=== PATIENT | female | born 1950 | race Two or more races ===

== ENCOUNTER 2018-09-03 10:31 | Outpatient (CLI) | payer OTHER | END 2018-09-03 15:21 | disposition home or self-care (01) | LOC: RX STUDY 10:31 | DX: R13.19 Other dysphagia (principal) ==

== ENCOUNTER 2019-04-03 09:26 | Outpatient (CLI) | payer OTHER | END 2019-04-03 09:28 | disposition home or self-care (01) | LOC: TOM 09:26 | DX: K57.90 Diverticulosis of intestine, part unspecified, without perforation or abscess without bleeding (principal); K44.9 Diaphragmatic hernia without obstruction or gangrene; K76.0 Fatty (change of) liver, not elsewhere classified; K63.5 Polyp of colon ==

== ENCOUNTER 2020-11-19 09:13 | Outpatient (CLI) | payer OTHER | END 2020-11-19 09:16 | disposition home or self-care (01) | LOC: RX STUDY 09:13 | DX: R13.14 Dysphagia, pharyngoesophageal phase (principal) ==